=== PATIENT | male | born 1960 | race Caucasian/White ===

== ENCOUNTER 2025-01-14 06:01 | Day surgery (SDC) | payer OTHER ==
[2025-01-11 17:04] VITALS: BMI 24.3
[2025-01-14] MEDS: LIDOCAINE 1% P/F 10 MG/ML VIAL INF ONE (09:53)
[2025-01-14] MEDS: BUPIVACAINE HCL/PF 0.5% (5MG/ML) 10 ML VIAL IJ ONE (09:53)
[2025-01-14] MEDS: IOHEXOL 180 MG/1 ML ML IJ ONE (09:54)
[2025-01-14] MEDS: TRIAMCINOLONE ACET 40MG/1ML VIAL IM ONE (09:54)
[2025-01-14 10:34] VITALS: BP 119/80; PULSE 95; RESP 16; TEMP 98
[2025-01-14] MEDS ORDERED: ACETAMINOPHEN 500 MG TABLET (FP) PO PRN (18:51)
== END 2025-01-14 10:15 | disposition home or self-care (01) ==
LOC: JASU-SURG 06:01
PROVIDERS: ATTEND Pain Medicine Pain Medicine
PROC: 3E0U3BZ Introduction of Anesthetic Agent into Joints, Percutaneous Approach (ICD-10-PCS; 2025-01-14)
PROC: 3E0U33Z Introduction of Anti-inflammatory into Joints, Percutaneous Approach (ICD-10-PCS; principal; 2025-01-14 09:45)
DX: M53.3 Sacrococcygeal disorders, not elsewhere classified (principal)
CPT/HCPCS: 76000-TC-FY